=== PATIENT | male | born 1975 | race Caucasian/White ===

== ENCOUNTER 2018-10-12 05:37 | Observation (INO) | payer MEDICARE, MEDICAID ==
[2018-10-08 16:19] LABS: ALBUMIN 3.9 G/DL (3.4-5.0); ALBUMIN/GLOBULIN RATIO 1.1 (1.1-1.5); ALKALINE PHOSPHATASE 39 IU/L (46-116); BLOOD UREA NITROGEN 13 MG/DL (7-18); BUN/CREATININE RATIO 12.9 (5.4-32.0); CALCIUM 9.3 MG/DL (8.5-10.1); CHLORIDE 103 MMOL/L (99-107); CREATININE 1.01 MG/DL (0.60-1.10); PRE OP ALT 79 U/L (30-65); PRE OP ANION GAP 7 (8-16); PRE OP BILIRUB, TOTAL 0.5 MG/DL (0.0-1.0); PRE OP GLUCOSE 144 MG/DL (70-104); PRE OP SODIUM 136 MMOL/L (135-145); TOTAL CARBON DIOXIDE 25.6 MMOL/L (24-32); TOTAL PROTEIN 7.4 G/DL (6.4-8.2); eGFR 80 ML/MIN
[2018-10-08 16:20] LABS: HEMOGLOBIN A1C 7.1 % (4.5-6.2)
[2018-10-08 16:21] LABS: PRE OP POTASSIUM 4.6 MMOL/L (3.4-5.1)
[2018-10-08 16:43] LABS: PRE OP AST 65 U/L (10-37)
[2018-10-12] VITALS (19 sets, daily range): BP systolic 96–149; BP diastolic 43–89
[~2018-10-12] VITALS: Ht 182.9 cm; Wt 158.7 kg
[~2018-10-12 05:37] MED LIST: ACAR25TA2 PO; ASPI-611 PO; CHOL10002 PO; DOCU-273 PO; FENO145T36 PO; FLUT16SP2 BOTHNARES; GLIM4TAB79 PO; OMEG1CAP46 PO; ORPH100T2 PO; OXYC40TA48 PO; OXYC80TA37 PO; PREG50CA PO; REPA1TAB22 PO; SITA25TA3 PO; TELM20TA8 PO; TEST200V10 IM; ZOLP10TA5 PO; famotidine 20mg tablet PO ONE; ringers solution, lacted 1,000 ML IV SCH
[2018-10-12] MEDS ORDERED: LIDOcaine 1% (10mg/ml) 2ml vial ONE (06:00)
[2018-10-12 07:01] LABS: BASOPHILS % (AUTO) 0.3 % (0-1); EOSINOPHILS # (AUTO) 0.2 X10'3 (0-0.9); EOSINOPHILS % (AUTO) 2.1 % (0-6); LYMPHOCYTES # (AUTO) 1.5 X10'3 (1.1-4.8); LYMPHOCYTES % (AUTO) 20.8 % (21-51); MEAN CORPUSCULAR HEMOGLOBIN 27.8 PG (27.0-31.0); MEAN CORPUSCULAR HGB CONC 34.2 g/dL (33.0-36.5); MEAN CORPUSCULAR VOLUME 81.2 FL (78-98); MEAN PLATELET VOLUME 8.6 FL (7.4-10.4); MONOCYTES # (AUTO) 0.6 X10'3 (0-0.9); MONOCYTES % (AUTO) 8.3 % (2-12); NEUTROPHILS # (AUTO) 5.1 X10'3 (1.8-7.7); NEUTROPHILS % (AUTO) 68.5 % (42-75); PLATELET COUNT 193 X10'3 (140-440); RED BLOOD COUNT 6.89 X10'6 (4.70-6.10); RED CELL DISTRIBUTION WIDTH 15.8 % (11.5-14.5); WHITE BLOOD COUNT 7.4 X10'3 (4.5-11.0)
[2018-10-12 07:06] LABS: HEMOGLOBIN 19.1 g/dl (14.0-17.9)
[2018-10-12] MEDS ORDERED: sevoflurane 250ml liquid IH ONE (07:16)
[2018-10-12] MEDS ORDERED: midazolam 2 mg/2 ml injection ONE (07:18)
[2018-10-12] MEDS ORDERED: fentaNYL/PF 50MCG/1 ML 2ML syringe ONE (07:18)
[2018-10-12] MEDS ORDERED: acetaminophen 1,000mg/100ml IV 100 ML IV ONE (07:41)
[2018-10-12] MEDS ORDERED: ringers solution, lacted 1,000 ML IV SCH (08:03)
[2018-10-12] MEDS ORDERED: ondansetron/PF 4mg/2ml inj IV PRN ×2 (08:05→08:40)
[2018-10-12] MEDS ORDERED: morphine 4 MG/ML inj SYRINge IV PRN ×2 (08:05)
[2018-10-12] MEDS ORDERED: enalaprilat dihydrate 2.5mg/2ml vial IV PRN (08:05)
[2018-10-12] MEDS ORDERED: proCHLORperazine 10 MG/2 ml inj IV PRN (08:05)
[2018-10-12] MEDS ORDERED: ketorolac trometh. 30mg/ml inj. IV ONE (08:05)
[2018-10-12] MEDS ORDERED: meperidine/PF 25mg/ml syringe IV PRN ×2 (08:05)
[2018-10-12] MEDS ORDERED: propofol inj 20 ML IV ONE ×2 (08:30)
--- NOTE | 2018-10-12 08:35 | NUR ---
Received from OR via , accompanied by DR. PAULSON, Anesthesiologist and report given by Anesthesiolgist. S/P REVISION RT. STUMP BKA PER DR. MILAN W/ GENERAL ANESTHESIA. LMA IN PLACE ON ARRIVAL. RESPS. EVEN & UNLABORED. RT. LEG BANDAGE DRY & INTACT. RT. ARM IV PATENT.
[2018-10-12] MEDS ORDERED: acetaminophen 325mg tablet PO PRN (08:40)
[2018-10-12] MEDS ORDERED: HYDROmorphone inj. 0.5 MG/0.5 ML DISP.SYRIN IV PRN (08:40)
[2018-10-12] MEDS ORDERED: bisacodyl 10mg suppository rectal RC PRN (08:40)
[2018-10-12] MEDS ORDERED: diphenhydrAMINE 25mg capsule PO PRN ×2 (08:40)
[2018-10-12] MEDS ORDERED: magnesium hydroxide 30ml (MOM) UD suspension PO PRN (08:40)
--- NOTE | 2018-10-12 08:40 | NUR ---
PT. OPENS EYES, REACHING FOR LMA. LMA REMOVED PER DR. PAULSON. STRONG COUGH. REASSURED
--- NOTE | 2018-10-12 09:10 | NUR ---
AWAKE, ALERT, APPROP. RESPS. EVEN & UNLABORED. MEDICATED FOR PAIN. REASSURED.
[2018-10-12] MEDS: meperidine/PF 25mg/ml syringe IV PRN ×2 (09:14→09:47)
--- NOTE | 2018-10-12 09:43 | NUR ---
received report from gume in recovery
--- NOTE | 2018-10-12 09:45 | NUR ---
Report called to receiving nurse, MELANY HANNON . Transferred via BED. Belongings TAKEN TO ROOM, INCLUDING WHEELCHAIR. PT. A X O X 4. APPROP. RESPS. EVEN & UNLABORED. PAIN 12/06, MEDICATED.REASSURED. RT. ARM IV PATENT. RT. LEG BANDAGE DRY & INTACT. . Special Issues communicated to receiving nurse.
--- NOTE | 2018-10-12 10:00 | NUR ---
pt arrived on floor in ortho bed awake
[2018-10-12] MEDS: HYDROmorphone 1 mg/ml syringe IV PRN ×2 (10:35→15:10)
[2018-10-12] MEDS: potassium cl 20mEq in 1/2 NS 1,000 ML IV SCH ×2 (10:37→20:00)
[2018-10-12] MEDS: oxyCODONE IR 5mg (immed. release) tablet PO PRN ×3 (12:20→21:55)
[2018-10-12] MEDS: gabapentin 300mg capsule PO SCH ×2 (12:21→20:00)
[2018-10-12] MEDS: ketorolac tromethamine 15mg/ml inj. IV SCH ×2 (13:49→20:01)
[2018-10-12] MEDS: ceFAZolin 1GM/D5W- ADD-VANTAGE 50 ML IV SCH ×2 (15:38→23:26)
[2018-10-12] MEDS: acarbose 50mg tablet PO SCH (17:35)
--- NOTE | 2018-10-12 18:31 | NUR ---
gave report to niki reyes
[2018-10-12] MEDS ORDERED: ORPHENADRINE CITRATE 100 MG PO PRN (20:00)
[2018-10-12] MEDS ORDERED: vancomycin/NS 1 GM ADD-VANTAGE 250 ML IV SCH (20:00)
[2018-10-12] MEDS: oxyCODONE SR 40mg (sust release) tab PO SCH (20:01)
[2018-10-12] MEDS: vitamin D (cholecalciferol) 1,000 unit tablet PO SCH (20:01)
[2018-10-12] MEDS ORDERED: fluticasone nasal spray 16GM bottle NS SCH (21:00)
[2018-10-12] MEDS ORDERED: sennosides 8.6mg tablet PO SCH (21:00)
[2018-10-12] MEDS ORDERED: zolpidem 5mg tablet PO PRN (21:00)
[2018-10-12] MEDS ORDERED: fenofibrate 145mg tablet PO SCH (21:00)
[2018-10-12] MEDS: OMEGA-3/DHA/EPA/FISH OIL 1 EACH CAPSULE.DR PO SCH (21:46)
[2018-10-13] MEDS: ketorolac tromethamine 15mg/ml inj. IV SCH ×2 (03:02→07:56)
[2018-10-13] MEDS ORDERED: VANCOMYCIN INJ 1000 MG in NORMAL SALINE 250ml IV.SOLN IV ONE (05:30)
[2018-10-13] MEDS ORDERED: cefazolin/dext.iso 2gm/100 ML IV ONE (05:30)
[2018-10-13 06:00] VITALS: BP 164/78
[2018-10-13] MEDS: oxyCODONE IR 5mg (immed. release) tablet PO PRN ×2 (06:36→11:00)
[2018-10-13] MEDS: gabapentin 300mg capsule PO SCH (07:55)
[2018-10-13] MEDS: oxyCODONE SR 40mg (sust release) tab PO SCH (07:56)
[2018-10-13] MEDS: acarbose 50mg tablet PO SCH (07:58)
[2018-10-13] MEDS: OMEGA-3/DHA/EPA/FISH OIL 1 EACH CAPSULE.DR PO SCH (07:59)
[2018-10-13] MEDS ORDERED: pregabalin 75mg capsule PO SCH (08:00)
[2018-10-13] MEDS ORDERED: aspirin 81mg tablet.DR PO SCH (08:00)
[2018-10-13] MEDS ORDERED: docusate sod 100mg capsule PO SCH (08:00)
[2018-10-13] MEDS ORDERED: losartan 25mg tablet PO SCH (08:00)
[2018-10-13] MEDS: vitamin D (cholecalciferol) 1,000 unit tablet PO SCH (08:20)
[2018-10-13] MEDS: potassium cl 20mEq in 1/2 NS 1,000 ML IV SCH (08:40)
[2018-10-13 10:00] VITALS: BP 160/76
--- NOTE | 2018-10-13 10:20 | NUR ---
Patient in room ORTHO 4010. I have received report from Tomasa MOSLEY and had the opportunity to ask questions and assume patient care.
[2018-10-13] MEDS ORDERED: oxyCODONE SR 40mg (sust release) tab PO SCH (12:00)
--- NOTE | 2018-10-13 12:10 | NUR ---
Reviewed discharge instructions with pt. Pt verbalized understanding. All of pt's belongings were returned to pt. Pt was wheeled downstairs by staff. Pt will be transported to his home by [employer]. Pt is alert, oriented and no concerns are expressed at this time.
[2018-10-13] MEDS ORDERED: celeCOXIB 100mg capsule PO SCH (20:00)
[2018-10-14] MEDS ORDERED: acetaminophen 325mg tablet PO PRN (08:40)
[2018-10-17] MEDS ORDERED: TESTOSTERONE CYPIONATE 200 MG/ML VIAL IM SCH (08:00)
== END 2018-10-13 12:30 | disposition home or self-care (01) ==
LOC: PAS 05:37 → EDSTATUS 07:30 → ORTHO 4S 12:02 → PAS 12:02 → ORTHO 4S 12:24 → OBSVTOIN 12:24 → INTOOBSV 12:24
PROVIDERS: ADMIT Orthopaedic Surgery; ATTEND Orthopaedic Surgery
DX: T87.89 Other complications of amputation stump (principal); M25.561 Pain in right knee; L90.5 Scar conditions and fibrosis of skin; E11.9 Type 2 diabetes mellitus without complications; M54.9 Dorsalgia, unspecified; G89.29 Other chronic pain; G47.30 Sleep apnea, unspecified; Z89.511 Acquired absence of right leg below knee; Y92.89 Other specified places as the place of occurrence of the external cause
CPT/HCPCS: 27886; 36415; 80053; 82948; 83036; 85025; 93005; 96365; 96366; 96375; 96376; 97161; 97530; A6222; A6449; G0378; J0131; J0690; J1170; J1885; J2175; J2250; J2704; J3010; J3370; J3490; J7120; A7000; J7030

== ENCOUNTER 2018-10-22 22:26 | Emergency (ER) | payer MEDICARE, MEDICAID ==
[~2018-10-22] VITALS: Ht 182.9 cm; Wt 160.9 kg
[~2018-10-22 22:26] MED LIST changes: -famotidine 20mg tablet PO ONE; -ringers solution, lacted 1,000 ML IV SCH
[2018-10-22 22:43] VITALS: BP 179/100
== END 2018-10-22 23:57 | disposition home or self-care (01) ==
LOC: ER 22:26
DX: S81.801D Unspecified open wound, right lower leg, subsequent encounter (principal); Z79.82 Long term (current) use of aspirin; Z89.511 Acquired absence of right leg below knee; Z98.890 Other specified postprocedural states; X58.XXXD Exposure to other specified factors, subsequent encounter
CPT/HCPCS: 99284

== ENCOUNTER 2018-11-01 15:38 | Emergency (ER) | payer MEDICARE, MEDICAID ==
[~2018-11-01] VITALS: Ht 182.9 cm; Wt 159.1 kg
[2018-11-01 15:44] VITALS: BP 147/97
== END 2018-11-01 16:32 | disposition home or self-care (01) ==
LOC: ER 15:39
DX: S81.801D Unspecified open wound, right lower leg, subsequent encounter (principal); Z79.82 Long term (current) use of aspirin; Z79.899 Other long term (current) drug therapy; Z89.511 Acquired absence of right leg below knee; Z98.890 Other specified postprocedural states; X58.XXXD Exposure to other specified factors, subsequent encounter
CPT/HCPCS: 99284

== ENCOUNTER 2019-12-01 09:30 | Outpatient (CLI) | payer MEDICARE, MEDICAID ==
[~2019-12-01] VITALS: Ht 182.9 cm; Wt 136.1 kg
[~2019-12-01 09:30] MED LIST changes: +FENO145T26 PO; -FENO145T36 PO; +GLIM4TAB7 PO; -GLIM4TAB79 PO
[2019-12-01] MEDS ORDERED: FERR325T32 PO (10:06)
[2019-12-01 10:42] LABS: BASOPHILS % (AUTO) 0.1 % (0-1); EOSINOPHILS # (AUTO) 0.1 X10'3 (0-0.9); EOSINOPHILS % (AUTO) 1.7 % (0-6); LYMPHOCYTES # (AUTO) 0.6 X10'3 (1.1-4.8); LYMPHOCYTES % (AUTO) 9.2 % (21-51); MEAN CORPUSCULAR HEMOGLOBIN 27.6 PG (27.0-31.0); MEAN CORPUSCULAR VOLUME 83.7 FL (78-98); MEAN PLATELET VOLUME 8.4 FL (7.4-10.4); MONOCYTES # (AUTO) 0.6 X10'3 (0-0.9); MONOCYTES % (AUTO) 8.4 % (2-12); NEUTROPHILS # (AUTO) 5.3 X10'3 (1.8-7.7); NEUTROPHILS % (AUTO) 80.6 % (42-75); PRE OP HEMATOCRIT 53.4 % (42.0-52.0); PRE OP HEMOGLOBIN 17.6 g/dL (14.0-17.9); PRE OP PLATELET COUNT 196 X10'3 (140-440); RED BLOOD COUNT 6.38 X10'6 (4.70-6.10); RED CELL DISTRIBUTION WIDTH 15.9 % (11.5-14.5)
[2019-12-01 10:58] LABS: ALBUMIN 3.7 G/DL (3.4-5.0); ALBUMIN/GLOBULIN RATIO 0.9 (1.1-1.5); ALKALINE PHOSPHATASE 35 IU/L (46-116); BLOOD UREA NITROGEN 15 MG/DL (7-18); BUN/CREATININE RATIO 14.6 (5.4-32.0); CHLORIDE 107 MMOL/L (99-107); CREATININE 1.03 MG/DL (0.60-1.10); PRE OP ALT 24 U/L (30-65); PRE OP ANION GAP 5 (8-16); PRE OP AST 14 U/L (10-37); PRE OP BILIRUB, TOTAL 0.8 MG/DL (0.0-1.0); PRE OP GLUCOSE 127 MG/DL (70-104); PRE OP POTASSIUM 4.1 MMOL/L (3.4-5.1); PRE OP SODIUM 141 MMOL/L (135-145); TOTAL CARBON DIOXIDE 29.3 MMOL/L (24-32); TOTAL PROTEIN 7.6 G/DL (6.4-8.2); eGFR 78 ML/MIN
[2019-12-05] MEDS ORDERED: ringers solution, lacted 1,000 ML IV SCH (05:00)
[2019-12-05] MEDS ORDERED: famotidine 20mg tablet PO ONE (05:30)
[2019-12-05] MEDS ORDERED: MESSAGE TO NURSING IV ONE (05:30)
[2019-12-05] MEDS ORDERED: cefazolin/dext.iso 2gm/50ml 50 ML IV ONE (07:05)
[2019-12-05] MEDS ORDERED: BUPIVAcaine/PF 2.5 mg/ml (0.25%) 30ml vial ONE (12:12)
== END 2019-12-01 23:59 | disposition home or self-care (01) ==
LOC: PRE-OP 09:30 → EDSTATUS 12-05 16:15
PROVIDERS: ATTEND Orthopaedic Surgery
DX: Z01.818 Encounter for other preprocedural examination (principal); R94.31 Abnormal electrocardiogram [ECG] [EKG]; M75.52 Bursitis of left shoulder; M75.42 Impingement syndrome of left shoulder; Z11.59 Encounter for screening for other viral diseases
CPT/HCPCS: 36415; 80053; 85025; 93005; U0003; J3490; J7120

== ENCOUNTER 2021-01-21 20:31 | Emergency (ER) | payer MEDICARE, MEDICAID ==
[~2021-01-21] VITALS: Ht 182.9 cm; Wt 140.0 kg
[~2021-01-21 20:31] MED LIST changes: -ACAR25TA2 PO; -ASPI-611 PO; -CHOL10002 PO; +FERR325T32 PO; -FLUT16SP2 BOTHNARES; -GLIM4TAB7 PO; -OXYC80TA37 PO; -REPA1TAB22 PO; -SITA25TA3 PO
[2021-01-21 20:56] VITALS: BP 149/98
[2021-01-21 21:29] LABS: BASOPHILS % (AUTO) 0.4 % (0-1); EOSINOPHILS # (AUTO) 0.2 X10'3 (0-0.9); EOSINOPHILS % (AUTO) 2.5 % (0-6); HEMATOCRIT 54.2 % (42.0-52.0); LYMPHOCYTES # (AUTO) 1.4 X10'3 (1.1-4.8); LYMPHOCYTES % (AUTO) 19.8 % (21-51); MEAN CORPUSCULAR HEMOGLOBIN 29.9 PG (27.0-31.0); MEAN CORPUSCULAR HGB CONC 34.2 g/dL (33.0-36.5); MEAN CORPUSCULAR VOLUME 87.5 FL (78-98); MEAN PLATELET VOLUME 8.3 FL (7.4-10.4); MONOCYTES # (AUTO) 0.6 X10'3 (0-0.9); MONOCYTES % (AUTO) 8.5 % (2-12); NEUTROPHILS % (AUTO) 68.8 % (42-75); PLATELET COUNT 171 X10'3 (140-440); RED BLOOD COUNT 6.19 X10'6 (4.70-6.10); RED CELL DISTRIBUTION WIDTH 14.2 % (11.5-14.5); WHITE BLOOD COUNT 7.3 X10'3 (4.5-11.0)
[2021-01-21 21:36] LABS: ALBUMIN 4.1 G/DL (3.4-5.0); ANION GAP 8 (8-16); BLOOD UREA NITROGEN 22 MG/DL (7-18); BUN/CREATININE RATIO 21.6 (5.4-32.0); CALCIUM 8.7 MG/DL (8.5-10.1); CHLORIDE 106 MMOL/L (99-107); CREATININE 1.02 MG/DL (0.60-1.10); GLUCOSE 90 MG/DL (70-104); POTASSIUM 4.4 MMOL/L (3.5-5.1); SODIUM 143 MMOL/L (135-145); TOTAL CARBON DIOXIDE 28.8 MMOL/L (24-32); eGFR 78 ML/MIN
[2021-01-21 21:43] LABS: HEMOGLOBIN 18.5 g/dl (14.0-17.9)
[2021-01-22] MEDS ORDERED: CefTRIAXone/D5W-Rocephin 1gm 50 ML IV ONE (00:15)
[2021-01-22] MEDS ORDERED: normal saline 1000ML IV soln IVB ONE (00:15)
[2021-01-22] MEDS ORDERED: iohexol 300mg/ml 100ml inj. ONE (00:21)
[2021-01-22] MEDS ORDERED: CEPH250T PO (03:04)
== END 2021-01-22 03:38 | disposition home or self-care (01) ==
LOC: ER 20:32
DX: L03.115 Cellulitis of right lower limb (principal); L73.9 Follicular disorder, unspecified; G89.18 Other acute postprocedural pain; M25.561 Pain in right knee; Z89.511 Acquired absence of right leg below knee; Z79.2 Long term (current) use of antibiotics; Z79.899 Other long term (current) drug therapy
CPT/HCPCS: 10060; 36415; 73701; 80048; 85025; 96365; 96366; 99285; J0696; J7030; Q9967